=== PATIENT | female | born 1960 | race Caucasian/White ===

== ENCOUNTER 2017-09-03 12:40 | Emergency (ER) | payer OTHER ==
[2017-09-03] MEDS ORDERED: Ketorolac Tromethamine 60 MG/2 ML VIAL ONE (13:47)
--- NOTE | 2017-09-03 13:49 | RAD ---
4 VIEWS RIGHT KNEE: Date: 09/03/17 COMPARISON: None. HISTORY: Right-sided knee pain. FINDINGS: There is no knee joint effusion, displaced fracture, or evidence of dislocation seen. There are subtle areas of sclerosis seen involving the subchondral bone of the medial and lateral fe moral condyles. MRI of the right knee performed 04/11/13 mentions abnormal signal intensity in these regions suggesting areas of multifocal avascular necrosis or small bone infarctions. IMPRESSION: No acute fracture or dislocation. Incidental findings as detailed above. If symptoms persist, repeat right knee MRI may be beneficial. POS: [facility]
== END 2017-09-03 14:04 | disposition home or self-care (01) ==
LOC: ERS 12:40
DX: S83.91XA Sprain of unspecified site of right knee, initial encounter (principal); Z86.73 Personal history of transient ischemic attack (TIA), and cerebral infarction without residual deficits; W08.XXXA Fall from other furniture, initial encounter; Y99.0 Civilian activity done for income or pay
CPT/HCPCS: 96372; J1885

== ENCOUNTER 2019-09-07 15:08 | Outpatient (CLI) | payer OTHER ==
--- NOTE | 2019-09-07 15:40 | MMO ---
Bilateral MAMMO Bilat Screen [facility]. CLINICAL HISTORY: Patient is 59 years old and is seen for screening. The patient has the following family history of breast cancer: cousin female, (MATERNAL) and maternal aunt. The patient has no personal history of cancer. The patient has a history of right Excisional Biopsy in December, - benign - NEEDLE LOC. VIEWS: The views performed were: bilateral craniocaudal with tomosynthesis and bilateral mediolateral oblique with tomosynthesis. FILMS COMPARED: The present examination has been compared to a prior imaging study performed at [facility] on 01/19/2017. This study has been interpreted with the assistance of computer-aided detection. MAMMOGRAM FINDINGS: The breasts are heterogeneously dense, which could obscure a lesion on mammography. There are stable benign appearing calcifications seen in both breasts. There are also vascular calcifications. There are no suspicious masses, suspicious calcifications, or new areas of architectural distortion. IMPRESSION: THERE IS NO MAMMOGRAPHIC EVIDENCE OF MALIGNANCY. A ROUTINE FOLLOW-UP MAMMOGRAM IN 1 YEAR IS RECOMMENDED. THE RESULTS OF THIS EXAM WERE SENT TO THE PATIENT. ACR BI-RADS Category 2 - Benign finding MAMMOGRAPHY NOTE: 1. A negative mammogram report should not delay a biopsy if a dominant of clinically suspicious mass is present. 2. Approximately 10% to 15% of breast cancers are not detected by mammography. 3. Adenosis and dense breasts may obscure an underlying neoplasm. Reported by: FROY NAIR MD Electonically Signed: [id number]
== END 2019-09-07 15:09 | disposition home or self-care (01) ==
LOC: BICMAMMO 15:08
PROVIDERS: ATTEND Family Medicine
DX: Z12.31 Encounter for screening mammogram for malignant neoplasm of breast (principal); Z80.3 Family history of malignant neoplasm of breast
CPT/HCPCS: 77063; 77067

== ENCOUNTER 2019-11-11 10:46 | Day surgery (SDC) | payer OTHER ==
[2019-11-10 14:09] VITALS: BMI 22.6
[~2019-11-11 10:46] MED LIST: Lidocaine 1% PF 5 ML VIAL ONE; PROPOFOL 200 MG/20 ML VIAL ONE
--- NOTE | 2019-11-11 14:19 | OP ---
DATE OF PROCEDURE: 11/11/2019 PROCEDURE PERFORMED: Colonoscopy. PREPROCEDURE DIAGNOSIS: Average risk colon cancer screening. POSTPROCEDURE DIAGNOSES: 1. Exam to cecum; good bowel preparation. 2. Scattered diverticula in the sigmoid colon. 3. Mild diffuse melanosis coli. 4. Hypertrophied anal papillae. 5. Small internal hemorrhoids. 6. Otherwise, normal colonoscopy. No polyp seen. DESCRIPTION OF PROCEDURE: Written informed consent was obtained. The patient was brought to the endoscopy suite. Total intravenous anesthesia was administered by [facility] and [facility]. The patient was placed in the left lateral decubitus position. A digital rectal exam was performed, that was unremarkable. A Pentax video colonoscope was inserted through the anal canal and advanced under direct visualization to the cecum. Position in the cecum was verified by clear identification of the appendiceal orifice and the ileocecal valve. The quality of the bowel preparation was good. Each colon segment was examined carefully as the colonoscope was slowly withdrawn from the cecum. Vascular pattern and haustral folds appeared normal. Mild diffuse darkening of the colonic mucosa consistent with melanosis coli was noted throughout the colon. Occasional diverticular orifices were also seen in the sigmoid colon. There was no evidence of bleeding or infection. No polyps were seen. In the rectum, a retroflexed view demonstrated small internal hemorrhoids and 2 hypertrophied anal papillae. The colon was decompressed as the colonoscope was completely removed from the patient. She was transferred to the Day Stay surgery area for postprocedure monitoring. There were no immediate complications. RECOMMENDATIONS: 1. Resume previous diet and medications. 2. Annual stool FIT beginning in 5 years as per primary care provider. 3. Repeat colonoscopy in 10 years for screening. 4. Follow up with GI as needed. Job ID: [id number]
== END 2019-11-11 14:10 | disposition home or self-care (01) ==
LOC: SDC 10:46
PROVIDERS: ATTEND Internal Medicine Gastroenterology
PROC: 0DJD8ZZ Inspection of Lower Intestinal Tract, Via Natural or Artificial Opening Endoscopic (ICD-10-PCS; principal; 2019-11-11)
DX: Z12.11 Encounter for screening for malignant neoplasm of colon (principal); K57.30 Diverticulosis of large intestine without perforation or abscess without bleeding; K63.89 Other specified diseases of intestine; K62.89 Other specified diseases of anus and rectum; K64.8 Other hemorrhoids; Z79.899 Other long term (current) drug therapy; Z88.6 Allergy status to analgesic agent; Z88.5 Allergy status to narcotic agent
CPT/HCPCS: J2001; J2704

== ENCOUNTER 2021-08-31 14:32 | Day surgery (SDC) | payer OTHER ==
[2021-08-31] MEDS ORDERED: Fentanyl 100 MCG/2 ML VIAL ONE ×2 (16:02→17:24)
[2021-08-31] MEDS ORDERED: ceFAZolin 2 GM/DEX 5% 100 ML BAG ONE ×2 (16:08→16:09)
[2021-08-31] MEDS ORDERED: Promethazine HCl 25 MG/ML VIAL ONE (17:25)
[2021-08-31] MEDS ORDERED: Ondansetron PF 4 MG/2 ML Vial ONE (17:31)
[2021-08-31] MEDS ORDERED: Ketorolac Tromethamine 30 MG/ML VIAL ONE (17:31)
[2021-08-31] MEDS ORDERED: Lidocaine 1% PF 5 ML VIAL ONE (17:31)
[2021-08-31] MEDS ORDERED: PROPOFOL 200 MG/20 ML VIAL ONE (17:31)
[2021-08-31] MEDS ORDERED: Dexamethasone 20 MG/5 ML VIAL ONE (17:31)
[2021-08-31] MEDS ORDERED: Ropivacaine 0.5% HCl/PF (150 MG/30 ML VIAL) ONE (18:39)
[2021-08-31] MEDS ORDERED: Sodium Chloride 0.9% 20 ML ONE (18:39)
[2021-08-31] MEDS ORDERED: Lidocaine 2% PF 5 ML VIAL ONE (18:39)
[2021-08-31] MEDS ORDERED: hydrALAZINE 20 MG/ML VIAL ONE (19:25)
[2021-08-31] MEDS ORDERED: Ropivacaine 0.2% 550 ML 550 ML NERVE BLCK SCH (19:30)
[2021-08-31] MEDS ORDERED: Promethazine HCl 25 MG/ML VIAL IM PRN (19:30)
[2021-08-31] MEDS ORDERED: Zolpidem Tartrate 5 MG TAB PO PRN (19:30)
[2021-08-31] MEDS ORDERED: Ondansetron PF 4 MG/2 ML Vial IVP PRN (19:30)
== END 2021-08-31 19:55 | disposition home or self-care (01) ==
LOC: ERS 14:32 → SDC/OP 14:53
PROVIDERS: ATTEND Orthopaedic Surgery
PROC: 0PSJ04Z Reposition Left Radius with Internal Fixation Device, Open Approach (ICD-10-PCS; principal; 2021-08-31)
DX: S52.552A Other extraarticular fracture of lower end of left radius, initial encounter for closed fracture (principal); S52.612A Displaced fracture of left ulna styloid process, initial encounter for closed fracture; Z88.5 Allergy status to narcotic agent; Z88.6 Allergy status to analgesic agent; V80.010A Animal-rider injured by fall from or being thrown from horse in noncollision accident, initial encounter
CPT/HCPCS: 76000; C1713; J0360; J2001; J2550; J2795; J3010

== ENCOUNTER 2022-07-23 06:50 | Emergency (ER) | payer BC, OTHER | END 2022-07-23 10:17 | disposition home or self-care (01) | LOC: ERS 06:50 | DX: S32.019A Unspecified fracture of first lumbar vertebra, initial encounter for closed fracture (principal); S32.039A Unspecified fracture of third lumbar vertebra, initial encounter for closed fracture; W19.XXXA Unspecified fall, initial encounter | CPT/HCPCS: 72100; 72131; 72220; 96372 ==

== ENCOUNTER 2022-08-06 07:29 | Outpatient (CLI) | payer OTHER | END 2022-08-06 07:30 | disposition home or self-care (01) | LOC: RAD 07:29 | PROVIDERS: ATTEND Surgery | DX: S32.019D Unspecified fracture of first lumbar vertebra, subsequent encounter for fracture with routine healing (principal); M47.816 Spondylosis without myelopathy or radiculopathy, lumbar region; M43.16 Spondylolisthesis, lumbar region | CPT/HCPCS: 72100 ==

== ENCOUNTER 2022-09-17 14:46 | Outpatient (CLI) | payer OTHER | END 2022-09-17 14:47 | disposition home or self-care (01) | LOC: RAD 14:46 | PROVIDERS: ATTEND Surgery | DX: S32.009A Unspecified fracture of unspecified lumbar vertebra, initial encounter for closed fracture (principal) | CPT/HCPCS: 72100 ==

== ENCOUNTER 2023-03-18 15:08 | Outpatient (CLI) | payer BC | END 2023-03-18 15:09 | disposition home or self-care (01) | LOC: BICMAMMO 15:08 | PROVIDERS: ATTEND Family Medicine | DX: Z12.31 Encounter for screening mammogram for malignant neoplasm of breast (principal); Z78.0 Asymptomatic menopausal state; M81.0 Age-related osteoporosis without current pathological fracture | CPT/HCPCS: 77063; 77067; 77080 ==